=== PATIENT | female | born 1945 | race Caucasian/White ===

== ENCOUNTER 2019-11-14 18:48 | Inpatient (IN) | payer MEDICARE ==
[~2019-11-14] VITALS: Ht 172.7 cm; Wt 90.7 kg
[2019-11-14] MEDS: PANTOPRAZOLE SODIUM IV 40 MG in IV DEXTROSE 5% 100 ML IV ONE (01:30)
[2019-11-14] MEDS: MAGNESIUM SULFATE/D5W 100 ML IV SCH ×2 (04:30→20:05)
--- NOTE | 2019-11-14 19:05 | NUR ---
500 ml ns infuded by paramedics.
[2019-11-14] MEDS ORDERED: ATEN50TA PO (19:07)
[2019-11-14] MEDS ORDERED: DIGO125T PO (19:07)
[2019-11-14 19:18] LABS: BASOPHILS % (AUTO) 0.3 % (0.0-2.0); HEMATOCRIT 27.7 % (31.2-41.9); HEMOGLOBIN 9.5 g/dL (10.9-14.3); LYMPHOCYTES # (AUTO) 1.4 K/uL (20.0-40.0); LYMPHOCYTES % (AUTO) 8.2 % (20.5-51.5); MEAN CORPUSCULAR HEMOGLOBIN 30.7 uug (24.7-32.8); MEAN CORPUSCULAR HGB CONC 34 g/dL (32.3-35.6); MEAN CORPUSCULAR VOLUME 89.9 fL (75.5-95.3); MONOCYTES # (AUTO) 1.1 K/uL (2.0-10.0); MONOCYTES % (AUTO) 6.2 % (0.0-11.0); NEUTROPHILS # (AUTO) 14.9 K/uL (1.8-8.9); NEUTROPHILS % (AUTO) 85.3 % (38.5-71.5); PLATELET COUNT (AUTO) 282 K/uL (179-408); RED BLOOD CELL COUNT(AUTO) 3.08 MIL/uL (3.63-4.92); WHITE BLOOD COUNT (AUTO) 17.5 K/uL (3.8-11.8)
[2019-11-14 19:30] LABS: BILIRUBIN,DIRECT 0.1 mg/dL (0.0-0.2); BILIRUBIN,TOTAL 0.4 mg/dL (0.2-1.0); CREATININE 0.9 mg/dL (0.6-1.3); POTASSIUM 3.5 mmol/L (3.5-5.1); TOTAL PROTEIN, SERUM 5.9 g/dL (6.4-8.2)
--- NOTE | 2019-11-14 19:30 | NUR ---
RECEIVED PT FROM EMBER FONTAINE. PT RESTING IN BED . V/S STABLE.
--- NOTE | 2019-11-14 19:42 | NUR ---
LAB CALLED FOR CHRITICAL LAB. LACTIC ACID LEVEL 2.0
[2019-11-14] MEDS ORDERED: POTASSIUM CHLORIDE 20 MEQ TAB.PRT.SR PO ONE ×2 (20:00→22:45)
[2019-11-14] MEDS: POTASSIUM CHLORIDE 50 ML IV SCH ×2 (20:00→21:45)
[2019-11-14] MEDS ORDERED: IV NORMAL SALINE 250 ML IV ONE (20:00)
[2019-11-14] MEDS ORDERED: ONDANSETRON 4 MG/2 ML VIAL IV ONE ×2 (20:00→23:45)
[2019-11-14] MEDS ORDERED: PIPERACILLIN SODIUM/TAZOBACTAM 3.375 G in IV DEXTROSE 5% 50 ML IV ONE (20:15)
[2019-11-14] MEDS ORDERED: IV NS 1000 ML 1,000 ML IV ONE (20:15)
--- NOTE | 2019-11-14 20:18 | NUR ---
JACQUI CORDOVA ORDERED TO STOP ALL IV MEDS FOR NOW AND ADMINISTER IV NS ONLY .
[2019-11-14] MEDS ORDERED: KETOROLAC TROMETHAMINE 30 MG INJ IVP ONE (20:30)
[2019-11-14] MEDS ORDERED: DILTIAZEM HCL 25 MG IV IV ONE (20:30)
[2019-11-14 21:29] LABS: HEMATOCRIT 24.8 % (31.2-41.9)
[2019-11-14 21:40] LABS: HEMOGLOBIN 8.4 g/dL (10.9-14.3)
--- NOTE | 2019-11-14 22:01 | NUR ---
DR CANCINO ORDERED TO RESUME ALL IV MEDS THAT WERE ON HOLD .
[2019-11-14] MEDS ORDERED: PIPERACILLIN/TAZOBACTAM/D5W 50 ML IV ONE (22:12)
--- NOTE | 2019-11-14 22:25 | NUR ---
WHILE TRYING TO READJUST THE CENTRAL LINE THE CENTRAL LINE WAS REMOVED WITH THE TAPE. PUT PRESSURE ON SITE FOR 5 MIN . SITE IS CLEAR . NO INFECTION NOTED.
--- NOTE | 2019-11-14 22:31 | NUR ---
PAGED EPIC PANEL TRUST CLERK. WAITING [facility] TO CALL BACK.
--- NOTE | 2019-11-14 22:36 | NUR ---
DR CANCINO SPOKE TO [facility]PER[facility] [employer]ER'S REPRESENTATIVE FOR EPIC PANEL.
--- NOTE | 2019-11-14 22:40 | NUR ---
CALLED FOR BED ASSIGNMENT. BED ASSIGNED IN ICU BED 1.
[2019-11-14] MEDS ORDERED: Z GUARD REMEDY PASTE 57 GM TUBE TOP PRN (22:45)
[2019-11-14] MEDS ORDERED: ACETAMINOPHEN 325 MG TABLET PO PRN (22:45)
[2019-11-14] MEDS ORDERED: MAGNESIUM HYDROXIDE 30 ML LIQUID UDC PO PRN (22:45)
--- NOTE | 2019-11-14 23:04 | NUR ---
diamond powder technician in room
--- NOTE | 2019-11-14 23:16 | NUR ---
GAVE REPORT TO MAGDALENA FONTAINE IN [facility].
--- NOTE | 2019-11-14 23:30 | NUR ---
Pt c/o R hand pain due to IV KCl. OR doc ordered to DC IC KCl.
[2019-11-14 23:51] LABS: *BILIRUBIN,URIN NEGATIVE (NEGATIVE); *COLOR,URINE YELLOW (YELLOW); *KETONES,URINE TRACE (NEGATIVE); *UROBILINOGEN,URINE 0.2 E.U./dl (NORMAL); LEUKOCYTE ESTERASE ,URINE NEGATIVE (NEGATIVE); NITRITE, URINE NEGATIVE (NEGATIVE); PH,URINE 5.5 (5.0-8.0); UGLUCOSE NEGATIVE (NEGATIVE)
[2019-11-15] VITALS (14 sets, daily range): BP systolic 93–143; BP diastolic 43–72
[2019-11-15] LABS: *BLOOD, URINE TRACE (NEGATIVE); *CLARITY,URINE HAZY (CLEAR)
[2019-11-15] MEDS: POTASSIUM CHLORIDE 50 ML IV SCH (00:02)
--- NOTE | 2019-11-15 00:10 | NUR ---
Pt. admitted to [facility] ICU BED 1 , under care of [facility] completed. PT STABLE DURING TRANSFER . V/S STABLE DURING TRANSFER . NO ACUTE DISTRESS.
[2019-11-15 00:20] LABS: BACTERIA,URINE NONE SEEN /HPF (NONE SEEN); MUCUS,URINE FEW /LPF (0-FEW); RBC,URINE 0-3 /HPF (0-3); SQUAMOUS EPITHELIAL CELL,UR FEW /HPF (NONE SEEN); WBC,URINE 0-3 /HPF (0-3)
[2019-11-15] MEDS: ONDANSETRON 4 MG/2 ML VIAL IV PRN ×2 (00:35→06:37)
--- NOTE | 2019-11-15 00:40 | NUR ---
ENDORSED BY ER NURSE , PATRICK MOULTON IV CANCELLED BY DR ALEXANDER
[2019-11-15] MEDS: IV NS 1000 ML 1,000 ML IV PRN ×2 (00:43→19:46)
[2019-11-15] MEDS: PANTOPRAZOLE SODIUM IV 40 MG in IV DEXTROSE 5% 100 ML IV ONE (00:46)
[2019-11-15] MEDS ORDERED: PANTOPRAZOLE SODIUM 40 MG VIAL ONE ×2 (00:48→03:31)
--- NOTE | 2019-11-15 01:00 | NUR ---
RECEIVED PATIENT FROM ER AWAKE AND ORIENTED AND ABLE TO FOLLOWS COMMAND ON RA , MAGNESIUM 1 GM HANGING , RIGHT AND LEFT HAND IV INTACT 20 GA , DENIES PAIN , NO BOWEL MOVEMENT AT THIS TIME
--- NOTE | 2019-11-15 01:30 | NUR ---
PATIENT ACCIDENTALLY PULLED LEFT HAND 20 GA IV FROM ER , COVERED WITH NON ADHESIVE DRESSING
--- NOTE | 2019-11-15 02:30 | NUR ---
PATIENT ACCIDENTALLY PULLED OUT 20 GA RIGHT HAND IV FROM ER
--- NOTE | 2019-11-15 03:00 | NUR ---
PROTONIX DRIP HANGED AT 20 ML /HR ., LEFT HAND ,
[2019-11-15] MEDS ORDERED: PIPERACILLIN/TAZOBACTAM/D5W 50 ML IV ONE (03:20)
--- NOTE | 2019-11-15 04:00 | NUR ---
NO VOMITING , NO NAUSEA
[2019-11-15] MEDS ORDERED: PIPERACILLIN SODIUM/TAZOBACTAM 3.375 G in IV DEXTROSE 5% 50 ML IV ONE (04:30)
--- NOTE | 2019-11-15 05:00 | NUR ---
SLEEPING COMFORTABLY , NO NAUSEA OR VOMITING NOTED, NO BOWEL MOVEMENT AT THIS TIME
[2019-11-15 05:05] LABS: BASOPHILS % (AUTO) 0.4 % (0.0-2.0); HEMATOCRIT 22.3 % (31.2-41.9); HEMOGLOBIN 7.8 g/dL (10.9-14.3); LYMPHOCYTES # (AUTO) 1.8 K/uL (20.0-40.0); LYMPHOCYTES % (AUTO) 13.8 % (20.5-51.5); MEAN CORPUSCULAR HEMOGLOBIN 31.5 uug (24.7-32.8); MEAN CORPUSCULAR HGB CONC 35 g/dL (32.3-35.6); MEAN CORPUSCULAR VOLUME 89.9 fL (75.5-95.3); MONOCYTES % (AUTO) 7.4 % (0.0-11.0); NEUTROPHILS # (AUTO) 10.1 K/uL (1.8-8.9); NEUTROPHILS % (AUTO) 78.4 % (38.5-71.5); PLATELET COUNT (AUTO) 221 K/uL (179-408); WHITE BLOOD COUNT (AUTO) 12.9 K/uL (3.8-11.8)
[2019-11-15 05:09] LABS: CREATININE 0.9 mg/dL (0.6-1.3); MAGNESIUM 2.2 mg/dL (1.8-2.4); PHOSPHOROUS 3.1 mg/dL (2.5-4.9)
[2019-11-15 05:20] LABS: RED BLOOD CELL COUNT(AUTO) 2.48 MIL/uL (3.63-4.92)
--- NOTE | 2019-11-15 06:00 | NUR ---
NOTIFIED SENG CAD DEVELOPER , FOR PICC LINE ORDER
--- NOTE | 2019-11-15 06:26 | NUR ---
DR RHOADES CALLED AND NOTIFIED OF LATEST LAB RESULTS TODAY , FOR HGB 7.8 , NO BLOOD TRANSFUSION ORDERED , NO NAUSEA OR VOMITING NOTED , DENIES PAIN ,
--- NOTE | 2019-11-15 06:35 | NUR ---
REQUESTED ZOFRAN , WITH MINIMAL FEELING OF NAUSEA , NO VOMITING NOTED
--- NOTE | 2019-11-15 08:30 | NUR ---
doctor allan in the unit to see patient. digoxin was ordered.
[2019-11-15] MEDS: DIGOXIN 125 MCG TABLET PO SCH (09:00)
--- NOTE | 2019-11-15 10:00 | NUR ---
isabel grove in the unit to see patient. will transfuse 1 unit to the patient today. start on clear liquids for now.
--- NOTE | 2019-11-15 11:08 | NUR ---
blood transfusion started. patient tolerating.
[2019-11-15] MEDS: SUCRALFATE 1 G TABLET PO SCH ×3 (11:30→20:28)
[2019-11-15] MEDS ORDERED: PIPERACILLIN SODIUM/TAZOBACTAM 3.375 G in IV DEXTROSE 5% 50 ML IV SCH (12:00)
[2019-11-15] MEDS ORDERED: DIGOXIN 500 MCG/2 ML AMP IV ONE (12:15)
[2019-11-15] MEDS ORDERED: METOCLOPRAMIDE HCL 10 MG/2 ML VIAL IV ONE (13:30)
[2019-11-15] MEDS ORDERED: diphenhydrAMINE 50 MG/1 ML VIAL IV ONE (13:30)
[2019-11-15] MEDS: PIPERACILLIN/TAZOBACTAM/D5W 3.375 G in IV DEXTROSE 5% 50 ML IV SCH ×2 (15:34→21:53)
--- NOTE | 2019-11-15 17:00 | NUR ---
spoke to isabel grove. patient could down grade to tele.
--- NOTE | 2019-11-15 20:00 | NUR ---
received patient awake , able to follow command , no distress , no tarry or black stool noted , no nausea or vomiting on RA
--- NOTE | 2019-11-15 20:11 | NUR ---
INTAKE AND OUTPUT BEING MONITORED , CURRENTLY NS AT 75 ML /HR Addendum: 11/15/19 at 2010 by KALLIE GUZMAN RN Amended: Michelet added. Addendum: 11/15/19 at 2011 by KALLIE GUZMAN RN Amended: Michelet cantrell.
[2019-11-15] MEDS: PANTOPRAZOLE SODIUM 40 MG VIAL IV SCH (20:28)
[2019-11-16] VITALS: BP 103/58
--- NOTE | 2019-11-16 | NUR ---
awake , denies pain , no nausea or vomiting , no bowel movement
[2019-11-16 03:00] VITALS: BP 144/70
--- NOTE | 2019-11-16 03:30 | NUR ---
restless , denies chest pain , no nausea and vomiting noted , patient accidentally pulled both iv site left and right hand , , pressure applied and covered with non adhesive dressing ,
--- NOTE | 2019-11-16 03:31 | NUR ---
dr almazan is called and notified of patient's heart rate going up due to anxiousness and restlessness, order received of xanax . 25 mg q hs prn , for anxiety
[2019-11-16] MEDS ORDERED: ALPRAZOLAM 0.25 MG TABLET PO PRN (03:45)
--- NOTE | 2019-11-16 04:21 | NUR ---
sleeping comfortably , after xanax medication , arousable HR 98
[2019-11-16] MEDS: PIPERACILLIN/TAZOBACTAM/D5W 3.375 G in IV DEXTROSE 5% 50 ML IV SCH (05:13)
--- NOTE | 2019-11-16 05:33 | NUR ---
vs being monitored , hr is being treated accordingly by digoxin and digoxin level being monitored Addendum: 11/16/19 at 0533 by KALLIE GUZMAN RN Amended: Links added.
[2019-11-16 06:50] VITALS: BP 126/70
--- NOTE | 2019-11-16 06:51 | NUR ---
awake , calm , denies chest pain , nallely right forearm intact , no swelling , on oxygen 1 l nc , iv running at 75 ml/hr
[2019-11-16] MEDS: SUCRALFATE 1 G TABLET PO SCH ×2 (07:53→11:23)
[2019-11-16] MEDS: DIGOXIN 125 MCG TABLET PO SCH (07:53)
[2019-11-16] MEDS: PANTOPRAZOLE SODIUM 40 MG VIAL IV SCH (07:53)
[2019-11-16 08:00] VITALS: BP 132/87
[2019-11-16] MEDS: IV NS 1000 ML 1,000 ML IV PRN (09:21)
[2019-11-16 09:39] LABS: BILIRUBIN,TOTAL 0.6 mg/dL (0.2-1.0); MAGNESIUM 1.9 mg/dL (1.8-2.4); POTASSIUM 3.5 mmol/L (3.5-5.1); TOTAL PROTEIN, SERUM 5.8 g/dL (6.4-8.2)
[2019-11-16] MEDS ORDERED: ATENOLOL 50 MG TABLET PO SCH (09:45)
[2019-11-16 09:52] VITALS: BP 132/87
[2019-11-16 10:27] LABS: BASOPHILS % (AUTO) 0.6 % (0.0-2.0); EOSINOPHILS % (AUTO) 0.3 % (0.0-7.0); HEMATOCRIT 24.5 % (31.2-41.9); HEMOGLOBIN 8.4 g/dL (10.9-14.3); LYMPHOCYTES # (AUTO) 1.5 K/uL (20.0-40.0); LYMPHOCYTES % (AUTO) 17.1 % (20.5-51.5); MEAN CORPUSCULAR HEMOGLOBIN 31.4 uug (24.7-32.8); MEAN CORPUSCULAR HGB CONC 35 g/dL (32.3-35.6); MONOCYTES # (AUTO) 0.7 K/uL (2.0-10.0); MONOCYTES % (AUTO) 8.4 % (0.0-11.0); NEUTROPHILS # (AUTO) 6.3 K/uL (1.8-8.9); NEUTROPHILS % (AUTO) 73.6 % (38.5-71.5); PLATELET COUNT (AUTO) 214 K/uL (179-408); RED BLOOD CELL COUNT(AUTO) 2.69 MIL/uL (3.63-4.92)
[2019-11-16 10:33] LABS: WHITE BLOOD COUNT (AUTO) 8.6 K/uL (3.8-11.8)
[2019-11-16] MEDS ORDERED: POTASSIUM CHLORIDE 20 MEQ POWDER PACKET GT ONE (11:00)
--- NOTE | 2019-11-16 11:20 | NUR ---
Dr. Cotto here to see pt. Full report given. New orders received.
--- NOTE | 2019-11-16 11:56 | NUR ---
JUS Adams here to see pt. Full report given. New orders received.
[2019-11-16] MEDS ORDERED: SUCR1TAB PO (11:58)
[2019-11-16] MEDS ORDERED: CIPR-262 PO (11:58)
[2019-11-16] MEDS ORDERED: PANT40TA2 PO (12:01)
--- NOTE | 2019-11-16 12:25 | NUR ---
Walked pt down to lobby for discharge. Discharge provided and discussed with the pt. Meds reconciled and reviewed with the pt. Pt verbalized understanding of discharge instructions and medications. PIV removed. All belongings reviewed and brought with the pt. Pt stable and nad noted upon discharge.
== END 2019-11-16 12:25 | disposition home or self-care (01) | DRG 378 ==
LOC: ER 18:50 → CCU 22:40 → TELE-TD3 11-15 08:08 → CCU 11-15 13:30
PROVIDERS: ADMIT Nurse Practitioner Acute Care; ATTEND Nurse Practitioner Acute Care
PROC: 06HY33Z Insertion of Infusion Device into Lower Vein, Percutaneous Approach (ICD-10-PCS; principal; 2019-11-14)
PROC: 30233N1 Transfusion of Nonautologous Red Blood Cells into Peripheral Vein, Percutaneous Approach (ICD-10-PCS; 2019-11-15)
DX: K27.4 Chronic or unspecified peptic ulcer, site unspecified, with hemorrhage (principal); D62 Acute posthemorrhagic anemia; I48.20 Chronic atrial fibrillation, unspecified; R65.10 Systemic inflammatory response syndrome (SIRS) of non-infectious origin without acute organ dysfunction; K57.30 Diverticulosis of large intestine without perforation or abscess without bleeding; D17.71 Benign lipomatous neoplasm of kidney; I77.810 Thoracic aortic ectasia; Z95.0 Presence of cardiac pacemaker; G43.909 Migraine, unspecified, not intractable, without status migrainosus; T39.015A Adverse effect of aspirin, initial encounter; Y92.009 Unspecified place in unspecified non-institutional (private) residence as the place of occurrence of the external cause; Z79.82 Long term (current) use of aspirin
CPT/HCPCS: 36415; 36556; 70030-TC; 71045; 83605; 83690; 83735; 84100; 85018; 85025; 85730; 86850; 86900; 86901; 86920; 87040; 87086; 93005; 93307; A4217; A4663; C9113; G0378; J1160; J1200; J1885; J2405; J2543; J2765; J3475; J3480; J3490; J7030; J7050; J7060; P9016-BL; P9021